=== PATIENT | male | born 1950 | race Caucasian/White ===

== ENCOUNTER 2019-11-19 13:00 | Outpatient (CLI) | payer MEDICARE, SELFPAY ==
--- NOTE | 2019-11-19 13:30 | USCV_ITS ---
Francisco Wilson Age: 69 Gender: M : 1950 Exam Date: 11/19/2019 13:52 Ordering Phys: Taran Ricardo MD Technologist: Mary George [place] [facility] [place]: DYSP[place]A BP: 134 / 88 HR: 88 Rhythm: Sinus Technical Quality: TDS MEASUREMENTS (Male / Female) Normal Values 2D ECHO LV Diastolic Diameter PLAX 3.8 cm 4.2 - 5.9 / 3.9 - 5.3 cm LV Systolic Diameter PLAX 3.2 cm IVS Diastolic Thickness 1.8 cm 0.6 - 1.0 / 0.6 - 0.9 cm IVS Systolic Thickness 1.6 cm LVPW Diastolic Thickness 1.9 cm 0.6 - 1.0 / 0.6 - 0.9 cm LVPW Systolic Thickness 1.9 cm LVOT Diameter 2.1 cm LV Ejection Fraction 2D Teich 31.6 % LA Diameter 6.4 cm LA Width 2.3 cm LA Height 6.1 cm RA Width 3.0 cm RA Height 5.3 cm Aorta at Sinotubular Diameter 3.0 cm M-MODE LV Diastolic Diameter MM 4.0 cm 4.2 - 5.9 / 3.9 - 5.3 cm LV Systolic Diameter MM 2.0 cm LV Ejection Fraction MM Teich 80.3 % IVS Diastolic Thickness MM 1.7 cm 0.6 - 1.0 / 0.6 - 0.9 cm IVS Systolic Thickness MM 2.0 cm LVPW Diastolic Thickness MM 1.4 cm 0.6 - 1.0 / 0.6 - 0.9 cm LVPW Systolic Thickness MM 1.6 cm RV Diastolic Diameter MM 1.7 cm Aortic Annulus Diameter 3.6 cm LA Ao Ratio MM 1.8 MV E Point Septal Separation 1.1 cm DOPPLER AV Peak Velocity 163.0 cm/s LVOT Peak Velocity 97.0 cm/s AV Area Cont Eq vti 1.9 cm squared AV Area Cont Eq pk 2.0 cm squared MV Area PHT 3.9 cm squared Mitral E to A Ratio 0.7 MV E' Velocity 8.0 cm/s Mitral E to MV E' Ratio 8.3 Mitral E to LV E' Lateral Ratio 8.2 Mitral E to LV E' Septal Ratio 8.5 TR Peak Velocity 161.2 cm/s TR Peak Gradient 10.4 mmHg TR Mean Velocity 112.7 cm/s TR Mean Gradient 5.7 mmHg TR Velocity Time Integral 31.9 cm TV Peak E Velocity 49.0 cm/s Right Atrial Pressure 3.0 mmHg Pulmonary Artery Systolic Pressu 13.4 mmHg PV Peak Velocity 66.0 cm/s RV Acceleration Time 0.1 s RV Ejection Time 0.3 s RV AcT/ET 0.3 FINDINGS Left Ventricle The exam is difficult due to the patient's size. Normal left ventricular size, systolic function and wall thickness, with no regional wall motion abnormalities. Grade I/IV diastolic dysfunction (abnormal relaxation filling pattern), normal to mildly elevated filling pressures. Left ventricular ejection fraction is estimated at 60 %. Right Ventricle Normal right ventricular size and systolic function. Normal right ventricular systolic pressure. Right Atrium The right atrium is normal in size. Left Atrium The left atrium is normal in size. Mitral Valve Mitral valve not well visualized. Aortic Valve Aortic valve not well visualized. Tricuspid Valve Tricuspid valve not well visualized. Pulmonic Valve Pulmonic valve not well visualized. Pericardium Normal pericardium without effusion. Aorta Aorta not well visualized. CONCLUSIONS The exam is difficult due to the patient's size. Normal left ventricular size, systolic function and wall thickness, with no regional wall motion abnormalities. Grade I/IV diastolic dysfunction (abnormal relaxation filling pattern), normal to mildly elevated filling pressures. Left ventricular ejection fraction is estimated at 60 %. Technically limited study. No significant valve abnormalities. No change from 11/12/12 Dr. Justin Roberson MD (Electronically Signed) Final Date: 19 November 2019 18:20 S
== END 2019-11-19 13:01 | disposition home or self-care (01) ==
PROVIDERS: Family Provider Internal Medicine; PCP Internal Medicine; Visit Provider Internal Medicine
DX: R06.00 Dyspnea, unspecified (principal)
CPT/HCPCS: 80048; 93306

== ENCOUNTER 2020-04-05 15:15 | Outpatient (CLI) | payer MEDICARE, SELFPAY ==
--- NOTE | 2020-04-05 | XR_ITS ---
WS: [id number] RIGHT KNEE: 2 VIEW(S) TECHNIQUE: AP and lateral. HISTORY: BILATERAL KNEE PAIN COMPARISON: None available. No fracture or dislocation. Mild narrowing of the RIGHT patellofemoral compartment. Very small suprapatellar joint effusion. No soft tissue abnormality. XR/XR knee RT 1-2V [id number] IMPRESSION: Small suprapatellar joint effusion and mild patellofemoral arthritis.
--- NOTE | 2020-04-05 15:25 | XR_ITS ---
WS: [id number] LEFT KNEE: 2 VIEW(S) TECHNIQUE: AP and lateral. HISTORY: Knee pain. COMPARISON: None available. No fracture or dislocation. Very mild narrowing of patellofemoral joint space. No joint effusion. No soft tissue abnormality. XR/XR knee LT 1-2V [id number] IMPRESSION: Mild LEFT patellofemoral joint space arthritis.
== END 2020-04-05 15:16 | disposition home or self-care (01) ==
LOC: RAD 15:22
PROVIDERS: PCP Internal Medicine; Visit Provider Internal Medicine
DX: M25.561 Pain in right knee (principal); M25.562 Pain in left knee; M25.461 Effusion, right knee; M13.862 Other specified arthritis, left knee; M13.861 Other specified arthritis, right knee
CPT/HCPCS: 73560

== ENCOUNTER → 2020-08-22 14:31 | Outpatient (BNVA) | payer MEDICARE, SELFPAY | PROVIDERS: PCP Internal Medicine; Referring Provider Internal Medicine; Visit Provider Specialist | DX: M17.0 Bilateral primary osteoarthritis of knee (principal) | CPT/HCPCS: 73560; 73565 ==

== ENCOUNTER 2020-08-25 14:51 | Outpatient (CLI) | payer MEDICARE, SELFPAY ==
--- NOTE | 2020-08-25 15:15 | MR_ITS ---
WS: [id number] MRI LUMBAR SPINE NONCONTRAST HISTORY: Bilateral lower back pain. COMPARISON: 03/07/2016 TECHNIQUE: Sagittal and axial multisequence imaging is submitted. Mild central canal narrowing the cervical spine at C5-6. Posterior lumbar alignment is normal. No acute fractures. Advancing degenerative disc disease at L4-5 and L5-S1. Endplate osteophytes at all levels most significant from L4 to L5. Conus terminates normally at L1-2 disc level. L1-L2: Normal. L2-L3: Mild annular disc bulging and mild facet and ligamentum flavum hypertrophy. There is a small a mount of fluid in the facet joints. Mild RIGHT foraminal narrowing. L3-L4: Diffuse annular disc bulging and osteophytic ridging. Disc osteophyte disease asymmetric to th e RIGHT. Ligamentum flavum flava hypertrophy is moderate. Small amount of fluid in the facet joints. Moderate bilateral foraminal stenosis, RIGHT greater than LEFT. Mild subarticular recess encroachment . Foraminal narrowing has progressed since the prior study. L4-L5: Diffuse annular disc bulging and osteophytic ridging. Facet joint arthritis encroaching upon t he thecal sac and subarticular recesses. Moderate central and bilateral foraminal stenosis. Moderate bilateral subarticular recess stenosis, slightly greater encroachment upon the RIGHT L5 nerve root. P rogression is moderate since the prior study. L5-S1: Mild annular disc bulging and osteophytic ridging. Moderate bilateral foraminal stenosis simil ar to the prior study. Paravertebral soft tissues are negative. MR/MR lumbar spine wo con* [id number] IMPRESSION: 1. Moderate progression of degenerative facet joint arthritis and disc disease since 2016. 2. Moderate central, subarticular and foraminal stenosis at L4-5. Greater encr oachment upon the RIGHT subarticular recess than the LEFT. 3. Moderate bilateral foraminal stenosis at L3-4. 4. Moderate bilateral foraminal stenosis at L5-S1.
== END 2020-08-25 14:52 | disposition home or self-care (01) ==
LOC: RADSHAW 14:57
PROVIDERS: PCP Internal Medicine; Visit Provider Internal Medicine
DX: M54.5 Low back pain (principal); M48.061 Spinal stenosis, lumbar region without neurogenic claudication; M48.07 Spinal stenosis, lumbosacral region; M51.36 Other intervertebral disc degeneration, lumbar region
CPT/HCPCS: 72148

== ENCOUNTER 2020-09-22 10:31 | Outpatient (CLI) | payer MEDICARE, SELFPAY ==
--- NOTE | 2020-09-22 11:00 | MR_ITS ---
WS: [id number] MRI CERVICAL SPINE NONCONTRAST TECHNIQUE: Sagittal T1, T2 and STIR imaging. Axial T2, gradient, and fiesta imaging. CLINICAL INFORMATION: M48.062 Spinal stenosis, lumbar region with neurogenic cl... COMPARISON: None. FINDINGS: Straightening of the normal cervical lordosis. Disc osteophyte complexes worse at C3-C4 and C5-C6. Co rd signal is normal. C2-C3: Mild left and no significant right foraminal narrowing. Mild facet arthropathy. Spinal canal i s patent. C3-C4: Disc osteophyte complex with mild central canal stenosis. Moderate bilateral bony foraminal na rrowing with osteophytic ridging and moderate facet arthropathy. C4-C5: Disc osteophyte ridging with severe left foraminal narrowing. Right foramen is patent. Spinal canal is patent. Advanced left facet arthropathy. C5-C6: Disc osteophyte complex with moderate central canal stenosis. Contact of the cervical cord. Se dariela bilateral bony foraminal narrowing. C6-C7: Disc osteophyte complex with endplate ridging. Spinal canal is patent. Moderate to severe bila teral bony foraminal narrowing right greater than left. C7-T1: Osteophytic ridging. Spinal canal is patent. Foramen are patent Visualized brain stem structures: Normal. Prevertebral soft tissues: Normal. MR/MR cervical spin wo con* [id number] IMPRESSION: 1. Straightening of the normal cervical lordosis with disc osteophyte complexe s worse at C3-C4 and C5-C6. 2. Mild central canal stenosis C3-C4 and moderate central canal stenosis C5-C6 with slight contact of the cervical cord. Cord signal remains normal. 3. Multilevel moderate to severe bony foraminal narrowing worse at bilateral C 3-4, left C4-5, bilateral C5-C6, and bilateral C6-7 right greater than left.
== END 2020-09-22 10:32 | disposition home or self-care (01) ==
PROVIDERS: PCP Internal Medicine; Visit Provider Orthopaedic Surgery
DX: M48.062 Spinal stenosis, lumbar region with neurogenic claudication (principal); M25.78 Osteophyte, vertebrae; M48.02 Spinal stenosis, cervical region
CPT/HCPCS: 72141

== ENCOUNTER → 2020-09-29 12:35 | Outpatient (BNVA) | payer MEDICARE, SELFPAY | PROVIDERS: PCP Internal Medicine; Referring Provider Orthopaedic Surgery; Visit Provider Anesthesiology Pain Medicine | DX: M48.062 Spinal stenosis, lumbar region with neurogenic claudication (principal); M51.16 Intervertebral disc disorders with radiculopathy, lumbar region; M47.816 Spondylosis without myelopathy or radiculopathy, lumbar region; M51.17 Intervertebral disc disorders with radiculopathy, lumbosacral region; M47.812 Spondylosis without myelopathy or radiculopathy, cervical region | CPT/HCPCS: 99205 ==

== ENCOUNTER → 2020-10-11 13:21 | Outpatient (BNVA) | payer MEDICARE, SELFPAY | PROVIDERS: PCP Internal Medicine; Visit Provider Anesthesiology Pain Medicine | DX: M51.16 Intervertebral disc disorders with radiculopathy, lumbar region (principal); M48.062 Spinal stenosis, lumbar region with neurogenic claudication; Z79.891 Long term (current) use of opiate analgesic | CPT/HCPCS: 64483; 64484; J1100; J3490 ==

== ENCOUNTER → 2020-11-16 10:01 | Outpatient (BNVA) | payer MEDICARE, SELFPAY | PROVIDERS: PCP Internal Medicine; Visit Provider Anesthesiology Pain Medicine | DX: M48.062 Spinal stenosis, lumbar region with neurogenic claudication (principal); M51.16 Intervertebral disc disorders with radiculopathy, lumbar region; M47.816 Spondylosis without myelopathy or radiculopathy, lumbar region; M47.812 Spondylosis without myelopathy or radiculopathy, cervical region; Z79.891 Long term (current) use of opiate analgesic | CPT/HCPCS: 99213; 99214 ==

== ENCOUNTER → 2020-12-13 13:40 | Outpatient (BNVA) | payer MEDICARE, SELFPAY | PROVIDERS: PCP Internal Medicine; Visit Provider Urology | DX: N40.1 Benign prostatic hyperplasia with lower urinary tract symptoms (principal); R97.20 Elevated prostate specific antigen [PSA]; R35.8 Other polyuria | CPT/HCPCS: 81003; 84153 ==

== ENCOUNTER → 2020-12-19 12:06 | Outpatient (BNVA) | payer MEDICARE, SELFPAY | PROVIDERS: PCP Internal Medicine; Visit Provider Anesthesiology Pain Medicine | DX: M54.16 Radiculopathy, lumbar region (principal); M48.062 Spinal stenosis, lumbar region with neurogenic claudication; Z79.891 Long term (current) use of opiate analgesic | CPT/HCPCS: 64483; 64484; J1100; J3490 ==

== ENCOUNTER → 2021-01-02 11:09 | Outpatient (BNVA) | payer MEDICARE, SELFPAY | PROVIDERS: PCP Internal Medicine; Visit Provider Anesthesiology Pain Medicine | DX: M51.17 Intervertebral disc disorders with radiculopathy, lumbosacral region (principal); M51.16 Intervertebral disc disorders with radiculopathy, lumbar region; M48.062 Spinal stenosis, lumbar region with neurogenic claudication; M47.816 Spondylosis without myelopathy or radiculopathy, lumbar region; M47.812 Spondylosis without myelopathy or radiculopathy, cervical region; K59.03 Drug induced constipation; T40.2X5A Adverse effect of other opioids, initial encounter; X58.XXXA Exposure to other specified factors, initial encounter | CPT/HCPCS: 99214 ==

== ENCOUNTER → 2021-01-26 13:34 | Outpatient (BNVA) | payer MEDICARE, SELFPAY | PROVIDERS: PCP Internal Medicine; Visit Provider Anesthesiology Pain Medicine | DX: M51.16 Intervertebral disc disorders with radiculopathy, lumbar region (principal); M48.062 Spinal stenosis, lumbar region with neurogenic claudication; M47.816 Spondylosis without myelopathy or radiculopathy, lumbar region; M47.812 Spondylosis without myelopathy or radiculopathy, cervical region | CPT/HCPCS: 99214 ==

== ENCOUNTER → 2021-05-23 15:45 | Outpatient (BNVA) | payer MEDICARE, SELFPAY | PROVIDERS: PCP Internal Medicine; Visit Provider Internal Medicine | DX: Z20.822 Contact with and (suspected) exposure to COVID-19 (principal); E66.9 Obesity, unspecified | CPT/HCPCS: 80053; 83036; 84443; 87635 ==

== ENCOUNTER → 2021-09-19 13:43 | Outpatient (BNVA) | payer MEDICARE, SELFPAY | PROVIDERS: PCP Internal Medicine; Visit Provider Nurse Practitioner | DX: R05.3 Chronic cough (principal); R60.9 Edema, unspecified; J02.9 Acute pharyngitis, unspecified; E66.01 Morbid (severe) obesity due to excess calories; Z68.42 Body mass index [BMI] 45.0-49.9, adult; I10 Essential (primary) hypertension; E11.9 Type 2 diabetes mellitus without complications; Z79.899 Other long term (current) drug therapy | CPT/HCPCS: 83880; 87071; 87880 ==

== ENCOUNTER 2024-02-10 13:02 | Outpatient (CLI) | payer MEDICARE, SELFPAY ==
--- NOTE | 2024-02-10 13:08 | CTR_ITS ---
PROCEDURE INFORMATION: Exam: CT Lumbar Spine Without and With Contrast Exam date and time: 02/10/2024 2:05 PM Age: 73 years old Clinical indication: Condition or disease; Disc degeneration; Lumbar region; Prior surgery; Surgery date: 6+ months; Surgery type: L spine; Additional info: Ddd/failed back syndrome of lumbar spine. No history of recent trauma or surgery is provided. TECHNIQUE: Imaging protocol: Computed tomography of the lumbar spine without and with contrast. 1481image(s) are provided. Radiation optimization: All CT scans at this facility use at least one of these dose optimization techniques: automated exposure control; mA and/or kV adjustment per patient size (includes targeted exams where dose is matched to clinical indication); or iterative reconstruction. Contrast material: OMNI 350; Contrast volume: 100 ml; Contrast route: INTRAVENOUS (IV); COMPARISON: MR lumbar spine wo con* [id number] 08/25/2020 3:23 PM. No recent lumbar radiograph or CT is currently available to evaluate for interval change or stability. RADIATION DOSE METRICS: Total DLP (mGy-cm): 3437.02 FINDINGS: Bones/joints: Osseous alignment is maintained. No displaced fracture or dislocation is appreciated.There is slightly decreased bone mineralization overall. There is interval postsurgical hardware demonstrated at the L4 through S1 levels on the [employer] scout radiograph with pedicular screw and vertical megan fixation along with disc spacing material. Hardware appears grossly intact. No definite significant periprosthetic lucency is currently appreciated. L2-L3 demonstrates some dorsal disc bulging and posterior element hypertrophy. This contributes to some moderate to significant neural foraminal narrowing. There is some spurring with disc space narrowing and vacuum phenomenon at the L3-L4 level along with posterior spurring contributing to some significant overall osseous neural foraminal narrowing. L4-L5 demonstrates postsurgical change along with some spurring contributing to some osseous neural foraminal narrowing left more so than right. L5-S1 demonstrates postsurgical change along with some spurring contributing to some significant osseous neural foraminal narrowing. Symmetric appearance of the sacral arcuate lines and sacroiliac junctions are appreciated. Discs/Spinal canal/Neural foramina: No hyperdense spinal canal fluid is currently appreciated. Lungs: No lobar consolidation is appreciated.There is minimal subsegmental atelectasis versus post inflammatory scarring demonstrated. Adrenal glands: There appears to be some adrenal hypertrophy. Kidneys and ureters: There appears to be some renal cortical thinning along with scarring and nonobstructive calcific, fluid dense related change more so on the left. Soft tissues: No radiopaque foreign body or subcutaneous emphysema is appreciated. No subcutaneous organized fluid collections are currently appreciated. Other findings: There is some motion and metallic streak artifact limitation. No other significant interval changes are appreciated. CT/CT lumbar spine wo/w con [id number] IMPRESSION: 1. There are surgical changes of the L4 through S1 levels with the hardware appearing grossly intact. There appears to be some subtle osteolysis about the mid to inferior screw more so on the right. Consider plain film for overall further evaluation. 2. There is disc space narrowing along with spurring contributing to some significant overall neural foraminal narrowing bilaterally at the L3-L4 level. There also appears to be some osseous spurring with osseous neural foraminal narrowing of the L4-L5 and L5-S1 levels left slightly more so than right. If clinically feasible, consider MRI with and without contrast for further evaluation. 3. There appears to be some incidental hypertrophy with nodularity of the adrenal glands left more so than right. Consider MRI of the abdomen with and without contrast for further evaluation.
[2024-02-10 14:02] LABS: Blood Urea Nitrogen 15 mg/dL (8-23)
[2024-02-10] MEDS: iohexol 350 mg/mL 500 mL Btl (per mL) IV (14:19)
== END 2024-02-10 13:03 | disposition home or self-care (01) ==
LOC: RAD 13:03
PROVIDERS: Radiology Neuroradiology; PCP Internal Medicine; Visit Provider General Practice
DX: M96.1 Postlaminectomy syndrome, not elsewhere classified (principal); M48.07 Spinal stenosis, lumbosacral region
CPT/HCPCS: 72133; 82565; 84520; Q9967